=== PATIENT | male | born 1955 | race American Indian/Alaskan Native ===

== ENCOUNTER 2018-04-28 07:21 | Day surgery (SDC) | payer BC ==
[2018-04-28] MEDS ORDERED: ECOTRIN PO ONE (07:50)
[2018-04-28] MEDS ORDERED: NACL 0.9% 500 ML 500 ML IV SCH (08:00)
[2018-04-28 09:35] LABS: Basophils % (Auto) 0.3 % (0.0-1.8); Eosinophils # (Auto) 0.2 K/mm3 (0.0-0.4); Eosinophils % (Auto) 5.2 % (0.0-4.3); Hemoglobin 14.5 gm/dl (11.8-15.2); Lymphocytes # (Auto) 1.5 K/mm3 (1.2-5.4); Lymphocytes % (Auto) 36.1 % (13.4-35.0); Mean Corpuscular HGB Conc 34 % (32-34); Mean Corpuscular Hemoglobin 33 pg (28-32); Mean Corpuscular Volume 96 fl (84-94); Monocytes # (Auto) 0.5 K/mm3 (0.0-0.8); Monocytes % (Auto) 12.2 % (0.0-7.3); Platelet Count 166 K/mm3 (140-440); Red Blood Count 4.46 M/mm3 (3.65-5.03); Red Cell Distribution Width 13.3 % (13.2-15.2)
[2018-04-28 09:39] LABS: INR 0.88 (0.87-1.13)
[2018-04-28 09:52] LABS: BUN/Creatinine Ratio 14; Blood Urea Nitrogen 11 mg/dL (9-20); Calcium 9.1 mg/dL (8.4-10.2); Hemolysis Index 78
[2018-04-28] MEDS ORDERED: HEPARIN 10,000 UNITS/10 ML ONE ×2 (10:27→10:36)
[2018-04-28] MEDS ORDERED: VERSED ONE (10:27)
[2018-04-28] MEDS ORDERED: HEPARIN/NS 5000 UNIT/500ML(CATH LAB) 1,000 ML IR ONE (10:27)
[2018-04-28] MEDS ORDERED: CALAN ONE (10:28)
[2018-04-28] MEDS ORDERED: NITROGLYCERIN SYRINGE 0 ML ONE (10:28)
[2018-04-28] MEDS: SUBLIMAZE ONE ×2 (10:51→10:52)
[2018-04-28] MEDS: XYLOCAINE 2% INFILTRATI ONE ×3 (10:53→11:13)
--- NOTE | 2018-04-28 13:23 | Short Stay Summary ---
Short Stay Documentation Date of service: 04/28/18 - History H&P: obtained from office - Allergies and Medications Current Medications: Allergies No Known Allergies Allergy (Verified 04/28/18 07:58) Home Medications Medication Instructions Recorded Confirmed Last Taken Type Aspirin BABY CHEW TAB 81 mg PO DAILY 04/28/18 04/28/18 04/27/18 History Cyclobenzaprine 10 mg PO DAILY 04/28/18 04/28/18 04/27/18 History 10 Duloxetine HCl [Cymbalta] 30 mg PO 04/28/18 04/27/18 History 30 mg Hydrocodone-Acetamin 10-325 mg 10 mg PO PRN 04/28/18 04/27/18 History Ibuprofen/Famotidine 800 mg PO PRN 04/28/18 04/27/18 History Rosuvastatin Calcium [Crestor] 10 mg PO 04/28/18 04/27/18 History 10 mg Active Medications Sodium Chloride (Nacl 0.9% 500 Ml) 500 mls @ 50 mls/hr IV DIRECT TRINA Stop: 04/28/18 17:59 Last Admin: 04/28/18 08:59 Dose: 50 mls/hr - Brief post op/procedure progress note Date of procedure: 04/28/18 Pre-op diagnosis: CMP Post-op diagnosis: same Procedure: LHC - see dictated cath report Anesthesia: local Estimated blood loss: none Condition: stable - Disposition Condition at discharge: Good Disposition: [id number] TO HOME OR SELFCARE - Discharge Diagnoses (1) Nonischemic cardiomyopathy Status: Chronic (2) Hyperlipemia Status: Chronic Short Stay Discharge Plan Activity: advance as tolerated Diet: low cholesterol, low salt Wound: open to air, keep clean and dry, per your surgeon's advice Follow up with: BRIAN HARMON MD [Primary Care Provider] - 7 Days DELL BROWN MD [Staff Physician] - 7 Days ([place] office, 05/12/2018 @ 10:30AM)
--- NOTE | 2018-04-28 15:27 | Cardiac Catherization Report ---
LEFT HEART AND RIGHT HEART CATHETERIZATION INDICATION FOR PROCEDURE: The patient is a 62-year-old -[place] gentleman with a history of mixed hyperlipidemia, right bundle-branch block, known to have PVCs, was noted to have cardiomyopathy and also dilated right-sided chambers. His ejection fraction was found to be 35-40%. Right ventricle is moderately dilated. Right-sided estimated ejection fraction is 35-40% with estimated right ventricular systolic pressure of 19 mmHg. The right and left heart catheterization is being performed because of low left ventricular systolic function and dilated right-sided chamber sizes. The patient and were explained of the procedure, potential complications and alternatives of therapy available. The patient was brought to the catheterization laboratory in a fasting condition and he was evaluated for moderate sedation. He was found to be appropriate for moderate sedation. Subsequently, right wrist area and right elbow area were thoroughly cleansed with chlorhexidine solution. Sterile drapes were applied. Also, right groin was prepared. DESCRIPTION OF PROCEDURE: The patient was sedated with IV Versed and fentanyl and after giving local anesthesia in the right radial artery, access was obtained and a 5-Thai sheath was introduced. A 5-Thai multipurpose catheter was used to obtain the left ventriculogram done in [place] and [place] projection using hand injection. Subsequently, 5-Thai TIG catheter was used to obtain the angiograms of the left and right coronary arteries in multiple views. After obtaining the angiograms, vein access is already available in the right elbow area. A wire and a catheter were attempted to advance to the venous side, however, could not advance because the vein access is in the branch. Hence, access was changed to right femoral vein after giving local anesthesia. With a 5-Thai micropuncture needle, right femoral vein access was obtained and 6-Thai sheath was introduced. A 6-Thai thermodilution Powell-Oscar catheter was advanced into the right atrium, right ventricle and right femoral into the pulmonary artery along with wedging the catheter in the right middle lobe area. Pressures were obtained in the right atrium, right ventricle, pulmonary artery and the wedge pressure. Also, cardiac outputs were obtained by Jp method. Mixed blood gas was obtained from the pulmonary artery, and arterial O2 saturation was obtained using the right radial access. At the end of the procedure, arterial sheath was removed and radial band was applied with good hemostasis. Similarly, sheath was removed from the femoral vein and access was obtained with manual pressure. No untoward complications were noted. Good hemostasis was achieved. The patient was stable throughout the procedure. The patient's sedation was started at 10:51 a.m. and ended at 11:26 a.m. The patient was monitored throughout with hemodynamic monitoring, EKG, and pulse oximetry. The patient tolerated the procedure well. No untoward complications were noted. The patient was breathing normally and moving all the extremities and communicating well. At the end of the procedure, the patient was transferred to the room in stable condition and findings were explained to the patient and his . Following findings were noted: Aortic pressure is 116/69, left ventricular pressure 118/12. No gradient across the aortic valve. Right atrial pressure is 12/13 with mean of 8 and right ventricular pressure is 29/11. Pulmonary artery pressure was 32/8 with mean of 17. Pulmonary artery wedge pressure is mean of 12. Cardiac output was 5.99 liters per minute with index of 2.70 liters per minute. Left ventriculogram done in [place] projection showed mildly dilated left ventricle with mild to moderate diffuse hypokinesis, ejection fraction in the range of 35-40%. Mitral regurgitation was not evaluated because of limited amount of dye injected. Coronary arteries, right coronary artery dominant vessel, angiographically smooth and normal, arises normally. Left coronary artery arises normally from left coronary cusp. Left main, LAD, which curves around the apex and its branches and circumflex artery and its branch are angiographically smooth and normal. FINAL IMPRESSION: 1. Mildly dilated LV with ejection fraction around 35-40%. 2. Normal coronary anatomy. 3. Right-sided pressures are upper limits of normal with right ventricular pressure of 29/11. PA pressure of 32/8. Pulmonary capillary wedge pressure and end diastolic pressure also within normal range. At this time, the patient appears to have dilated cardiomyopathy with no coronary artery disease angiographically and no significant pulmonary hypertension at this point. It would be continued on medical therapy. Procedure was uncomplicated. JOB# [id number] JO ANN/TOYA
[2018-04-28 15:32] VITALS: BP 135/83
== END 2018-04-28 07:22 | disposition home or self-care (01) ==
LOC: CATHLABREC 07:21
PROVIDERS: ATTEND Internal Medicine
DX: I42.0 Dilated cardiomyopathy (principal); I45.10 Unspecified right bundle-branch block; E78.5 Hyperlipidemia, unspecified; I51.7 Cardiomegaly; E78.00 Pure hypercholesterolemia, unspecified; Z79.899 Other long term (current) drug therapy; Z79.82 Long term (current) use of aspirin; Z82.49 Family history of ischemic heart disease and other diseases of the circulatory system
CPT/HCPCS: 36415; 80048; 85025; 85610; 85730; 93005; 93010; 93460; 99156; 99157; C1769; C1894; J1644; J2250; J3010; J7040; Q9967